=== PATIENT | female | born 1995 | race Caucasian/White ===

== ENCOUNTER 2024-10-06 13:41 | Outpatient (REF) | payer BC, SELFPAY ==
--- NOTE | ~2024-10-06 | US_ITS ---
EXAMINATION: US PELVIS CLINICAL INFORMATION: Left lower quadrant pain rule out ovarian cyst, torsion. Last menstrual period September 25, 2024 COMPARISON: None available. TECHNIQUE: Ultrasound of the pelvis is performed using both transabdominal and transvaginal transducers along with Doppler. Transvaginal imaging is performed due to inadequate visualization transabdominally. FINDINGS: The anteverted uterus measures 5.6 x 3.0 x 3.8 cm. Endometrial thickness is 7 mm. There is no significant free fluid. Right ovary measures 3.0 x 2.0 x 2.1 cm, volume is 7.0 mL. Left ovary measures 2.8 x 2.6 x 1.9 cm, volume 7.2 mL. Vascularity demonstrated in the bilateral ovaries with color Doppler. Visualization of the bilateral ovaries is limited due to bowel gas. US/US pelvic and transvaginal IMPRESSION: 1. Endometrial thickness is 7 mm. 2. Right ovarian volume is 7.0 mL and left ovarian volume is 7.2 mL. Bilateral ovaries demonstrate arterial flow with color Doppler. Visualization of the bilateral ovaries is limited due to bowel gas. 3. No significant free fluid. This study was presented today October 07, 2024 for interpretation. Stat results provided at this time as requested by referring provider. Electronically signed by: Ava Moy MD 10/07/2024 10:34 AM [facility]
== END 2024-10-06 13:42 | disposition home or self-care (01) ==
LOC: HO.UMASIMG 13:41
PROVIDERS: Visit Provider Emergency Medicine
DX: R10.32 Left lower quadrant pain (principal)
CPT/HCPCS: 76830; 76856

== ENCOUNTER 2025-03-04 07:46 | Outpatient (REF) | payer BC, SELFPAY ==
--- NOTE | ~2025-03-04 | US_ITS ---
CLINICAL HISTORY: PELVIC PAIN US pelvis transabdominal and transvaginal with color Doppler Comparison: None Findings: Transabdominal scanning performed for overall anatomy. Transvaginal scanning performed for additional detail. LMP: 02/10/2025 Anteverted uterus, normal size and echotexture, measuring 7.6 x 3.0 x 3.9 cm. Well defined endometrium, measuring 2.0 mm in thickness. The right ovary measures, 2.9 x 2.0 x 1.8 cm. Normal sonographic appearance right ovary. Normal color Doppler The left ovary measures, 3.4 x 2.2 x 1.0 cm. Normal sonographic appearance left ovary. Normal color Doppler No adnexal masses or fluid collections. No free fluid Impression: 1. Normal pelvic ultrasound with color Doppler This document has been electronically signed by: Kam Augustin MD on 03/05/2025 10:04:10
== END 2025-03-04 07:47 | disposition home or self-care (01) ==
LOC: HO.UMASIMG 07:46
PROVIDERS: Visit Provider Family Medicine
DX: R10.2 Pelvic and perineal pain (principal); R35.0 Frequency of micturition
CPT/HCPCS: 76830; 76856

== ENCOUNTER → 2025-03-04 11:30 | Outpatient (BNV) | payer BC, SELFPAY | PROVIDERS: Visit Provider Radiology Diagnostic Radiology | DX: R10.2 Pelvic and perineal pain (principal) | CPT/HCPCS: 76830; 76856 ==